=== PATIENT | female | born 1995 | race Caucasian/White ===

== ENCOUNTER 2018-02-16 11:54 | Observation (INO) | payer OTHER ==
[~2018-02-16] VITALS: Ht 177.8 cm; Wt 93.0 kg
[2018-02-16 12:24] VITALS: BP 135/66; PULSE 97; RESP 18; TEMP 99.4; O2SAT 100
[2018-02-16 13:27] LABS: AUTOMATED NEUTROPHIL # 7.8 TH/MM3 (1.8-7.7); BASOPHIL % 0.2 % (0.0-2.0); EOSINOPHIL # 0.1 TH/MM3 (0-0.4); EOSINOPHIL % 0.5 % (0.0-4.0); HEMATOCRIT 42.1 % (35.0-46.0); HEMOGLOBIN 14.7 GM/DL (11.6-15.3); LYMPHOCYTE # 1.6 TH/MM3 (1.0-4.8); MEAN CELL VOLUME 85.5 FL (80.0-100.0); MEAN CORPUSCULAR HEMOGLOBIN 29.9 PG (27.0-34.0); MEAN PLATELET VOLUME 6.5 FL (7.0-11.0); MONO % 6.9 % (0.0-8.0); MONOCYTE # 0.7 TH/MM3 (0-0.9); NEUT % 76.4 % (16.0-70.0); PLATELET COUNT 359 TH/MM3 (150-450); RED BLOOD COUNT 4.92 MIL/MM3 (4.00-5.30); WHITE BLOOD COUNT 10.1 TH/MM3 (4.0-11.0)
--- NOTE | 2018-02-16 13:37 | RADRPT ---
EXAM DATE: 02/16/2018 1:32 PM EDT AGE/SEX: 22 years / Female INDICATIONS: Chest pain and numbness in arm. CLINICAL DATA: This is the patient's initial encounter. Patient reports that signs and symptoms have been present for 1 day and indicates a pain score of 6/10. MEDICAL/SURGICAL HISTORY: Asthma. Hypertension. None. COMPARISON: No prior exams available for comparison. FINDINGS: PA and lateral views of the chest demonstrate the lungs to be symmetrically aerated without evidence of mass, infiltrate or effusion. The cardiomediastinal contours are unremarkable. Osseous structures are intact. CONCLUSION: Negative examination. Electronically signed by: Garry Ramos MD 02/16/2018 1:35 PM EDT
[2018-02-16 13:48] LABS: BICARBONATE 25.8 MEQ/L (21.0-32.0); BLOOD UREA NITROGEN 11 MG/DL (7-18); CALCIUM 9.3 MG/DL (8.5-10.1); CHLORIDE 104 MEQ/L (98-107); CREATININE 0.91 MG/DL (0.50-1.00); GLOMERULAR FILTRATION RATE 79 ML/MIN (>89); GLUCOSE,RANDOM 85 MG/DL (74-106); SODIUM (NA) 139 MEQ/L (136-145)
[2018-02-16 13:51] LABS: TROPONIN I LESS THAN 0.02 NG/ML (0.02-0.05)
--- NOTE | 2018-02-16 14:30 | PD ---
HPI Chief Complaint: Chest Pain Time Seen by Provider: 14:01 Travel History International Travel<30 days: No Contact w/Intl Traveler<30days: No Traveled to known affect area: No History of Present Illness HPI 22-year-old male complains of chest pain. Patient states that he had intermittent left sided chest pain for the past few months. Patient states the pain aching pain less short period of time and resolved completely. Patient states the pain is not associate with exertion. Patient was seen in the emergency room in [place] last week. Patient states that he has chest x-ray EKG and blood test which were normal. Patient was advised to follow with consolidation accountant. Patient was seen by consolidation accountant in [place] yesterday. Patient awaiting stress test and echocardiogram. Patient states that he started having more severe chest pain this morning. Patient stated pain started in the left upper anterior chest with radiation to the left upper back. Patient states that he has numbness tingling sensation of the left arm and fingers. Patient denies any palpitation nausea diaphoresis. Patient denies any coughing congestion fever chills. Patient took aspirin 325 mg, 3 tablets this morning to this afternoon. Patient denies history hypertension, diabetes, hyperlipidemia. Patient is a smoker. Patient has family history of heart disease. Patient states that he has a history of asthma as a child. On a scale of 1-10 the pain is an 8. PFSH Past Medical History Asthma: Yes (as a child) Chest Pain: Yes Pneumonia: Yes (as a child ) ?: Not Past Surgical History Surgical History: No Previous Surgery Social History Alcohol Use: Yes (occ) Tobacco Use: No Substance Use: No (hx thc) Allergies-Medications (Allergen,Severity, Reaction): Coded Allergies: No Known Allergies (Unverified , 02/16/18) Reported Meds & Prescriptions Reported Meds & Active Scripts Active No Active Prescriptions or Reported Medications Review of Systems General / Constitutional: No: Fever Eyes: No: Visual changes HENT: No: Headaches Cardiovascular: Positive: Chest Pain or Discomfort Respiratory: No: Shortness of Breath Gastrointestinal: No: Abdominal Pain Genitourinary: No: Dysuria Musculoskeletal: No: Pain Skin: No Rash Neurologic: No: Weakness Psychiatric: No: Depression Endocrine: No: Polydipsia Hematologic/Lymphatic: No: Easy Bruising Physical Exam Narrative GENERAL: Well-nourished, well-developed patient. SKIN: Focused skin assessment warm/dry. HEAD: Normocephalic. EYES: No scleral icterus. No injection or drainage. NECK: Supple, trachea midline. No JVD or lymphadenopathy. CARDIOVASCULAR: Regular rate and rhythm without murmurs, gallops, or rubs. RESPIRATORY: Breath sounds equal bilaterally. No accessory muscle use. GASTROINTESTINAL: Abdomen soft, non-tender, nondistended. MUSCULOSKELETAL: No cyanosis, or edema. BACK: Nontender without obvious deformity. No CVA tenderness. Neurologic exam normal. Data Data Last Documented VS Vital Signs Date Time Temp Pulse Resp B/P (MAP) Pulse Ox O2 Delivery O2 Flow Rate FiO2 02/16/18 12:24 99.4 97 18 135/66 (89) 100 Orders Orders Electrocardiogram (02/16/18 12:27) Complete Blood Count With Diff (02/16/18 12:27) Basic Metabolic Panel (Bmp) (02/16/18 12:27) Ckmb (Isoenzyme) Profile (02/16/18 12:27) Troponin I (02/16/18 12:27) Chest, Pa & Lat (02/16/18 12:27) CKMB (02/16/18 12:57) CKMB% (02/16/18 12:57) Labs Laboratory Tests Test 02/16/18 12:57 White Blood Count 10.1 TH/MM3 Red Blood Count 4.92 MIL/MM3 Hemoglobin 14.7 GM/DL Hematocrit 42.1 % Mean Corpuscular Volume 85.5 FL Mean Corpuscular Hemoglobin 29.9 PG Mean Corpuscular Hemoglobin Concent 35.0 % Red Cell Distribution Width 13.0 % Platelet Count 359 TH/MM3 Mean Platelet Volume 6.5 FL Neutrophils (%) (Auto) 76.4 % Lymphocytes (%) (Auto) 16.0 % Monocytes (%) (Auto) 6.9 % Eosinophils (%) (Auto) 0.5 % Basophils (%) (Auto) 0.2 % Neutrophils # (Auto) 7.8 TH/MM3 Lymphocytes # (Auto) 1.6 TH/MM3 Monocytes # (Auto) 0.7 TH/MM3 Eosinophils # (Auto) 0.1 TH/MM3 Basophils # (Auto) 0.0 TH/MM3 CBC Comment DIFF FINAL Differential Comment Blood Urea Nitrogen 11 MG/DL Creatinine 0.91 MG/DL Random Glucose 85 MG/DL Calcium Level 9.3 MG/DL Sodium Level 139 MEQ/L Potassium Level 3.9 MEQ/L Chloride Level 104 MEQ/L Carbon Dioxide Level 25.8 MEQ/L Anion Gap 9 MEQ/L Estimat Glomerular Filtration Rate 79 ML/MIN Total Creatine Kinase 537 U/L Creatine Kinase MB LESS THAN 0.5 NG/ML Creatine Kinase MB % 0.1 % Troponin I LESS THAN 0.02 NG/ML MDM Medical Decision Making Medical Screen Exam Complete: Yes Emergency Medical Condition: Yes Interpretation(s) EKG showing a sinus rhythm nonspecific ST-T wave change. Cardiac enzymes are normal. Last Impressions Chest X-Ray 02/16/18 1227 Signed Impressions: CONCLUSION: Negative examination. Differential Diagnosis Differential diagnosis including musculoskeletal, angina, AK, PE, pneumothorax. Narrative Course 22-year-old male with recurrent chest pain. Diagnosis Primary Impression: Chest pain Qualified Codes: R07.9 - Chest pain, unspecified Scripts No Active Prescriptions or Reported Meds Johny Gardner MD Feb 16, 2018 14:30
[2018-02-16] MEDS ORDERED: SODIUM CHLORIDE 0.9% FLUSH 10 ML FLUSH IV FLUSH PRN (15:00)
[2018-02-16] MEDS ORDERED: ACETAMINOPHEN 500 MG CPLT PO PRN ×2 (15:00→16:00)
[2018-02-16 15:02] VITALS: O2SAT 99
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
[2018-02-16] MEDS ORDERED: NITROGLYCERIN 0.4 MG SL 25 TABS/BTL SL PRN (16:00)
[2018-02-16 16:28] VITALS: BP 127/71; PULSE 64; RESP 16; TEMP 98.2; O2SAT 98
[2018-02-16 16:55] LABS: TROPONIN I LESS THAN 0.02 NG/ML (0.02-0.05)
[2018-02-16 17:14] VITALS: PULSE 65
[2018-02-16] MEDS ORDERED: OMEP20TA93 PO (19:20)
--- NOTE | 2018-02-16 19:21 | HHI.DCPOC ---
Discharge Care Plan Diagnosis: (1) Musculoskeletal chest pain Goals to Promote Your Health * To prevent worsening of your condition and complications * To maintain your health at the optimal level Directions to Meet Your Goals Take your medications as prescribed Follow your dietary instruction Follow activity as directed Keep your appointments as scheduled Take your immunizations and boosters as scheduled If your symptoms worsen call your PCP, if no PCP go to Urgent Care Center or Emergency Room Smoking is Dangerous to Your Health. Avoid second hand smoke Call the 24-hour hour crisis hotline for domestic abuse at Iveth Mccallum Feb 16, 2018 19:20
[2018-02-16 19:59] VITALS: BP 134/70; PULSE 83; RESP 16; TEMP 97.9; O2SAT 98
--- NOTE | 2018-02-16 20:30 | EKG ---
Date Performed: 02/16/2018 Time Performed: 14:57:27 PTAGE: 22 years EKG: SINUS BRADYCARDIA VOLTAGE CRITERIA FOR LVH ABNORMAL ECG PREVIOUS TRACING : 02/16/2018 12.46 DOCTOR: Lucas Garcia Interpretating Date/Time 02/16/2018 20:29:45
[2018-02-16] MEDS ORDERED: SODIUM CHLORIDE 0.9% FLUSH 10 ML FLUSH IV FLUSH SCH ×2 (21:00)
[2018-02-17] MEDS ORDERED: ASPIRIN 325 MG TAB PO SCH (09:00)
--- NOTE | 2018-02-17 09:36 | EKG ---
Date Performed: 02/16/2018 Time Performed: 12:46:01 PTAGE: 22 years EKG: Sinus rhythm WITH SINUS ARRHYTHMIA NORMAL ECG NO PREVIOUS TRACING DOCTOR: Lucas Garcia Interpretating Date/Time 02/17/2018 09:34:14
--- NOTE | 2018-02-17 11:33 | TR ---
Date Performed: 02/16/2018 Time Performed: 18:51:57 DOCTOR: Saul Blanchard DRUG LIST: CLINICAL HISTORY: REASON FOR TEST: Chest pain REASON FOR ENDING: OBSERVATION: CONCLUSION: Chad protocol completed. Stopped sec to reaching target heart rate and leg fatigue. Maximum FQ=890 Target HR [id number]=258.0% Maximum VX=114/76 Total Exercise Time=8:01. no reprod chest discomfort. No ectoopy. Good exercise tolerance. No st segment change. Recovery quick and unremarkab le. COMMENTS: Patient exercised using the Chad protocol. No electrocardiographic changes were seen to suggest ischemia. Hemodynamic response to exercise was normal. No significant arrhythmia was prese nt.
== END 2018-02-16 22:00 | disposition home or self-care (01) ==
LOC: NEPE 11:54 → NEDA 14:50 → NEPGCP 16:11
PROVIDERS: ADMIT Internal Medicine Interventional Cardiology; ATTEND Internal Medicine Interventional Cardiology
DX: R07.89 Other chest pain (principal); R94.31 Abnormal electrocardiogram [ECG] [EKG]; R20.0 Anesthesia of skin; M54.9 Dorsalgia, unspecified; R20.2 Paresthesia of skin; R00.1 Bradycardia, unspecified; I49.9 Cardiac arrhythmia, unspecified; J45.909 Unspecified asthma, uncomplicated; F17.200 Nicotine dependence, unspecified, uncomplicated
CPT/HCPCS: 71046; 80048; 82550; 82552; 84484; 85025; 93005; 93017; 99285; G0378